=== PATIENT | female | born 1995 | race Caucasian/White ===

== ENCOUNTER 2022-12-12 13:08 | Emergency (ER) | payer OTHER ==
[2022-12-12 14:30] LABS: BASOPHILS # (AUTO) 0.1 10^3/uL (0.0-0.1); BASOPHILS % (AUTO) 0.5 %; EOSINOPHILS # (AUTO) 0.1 10^3/uL (0.0-0.7); EOSINOPHILS % (AUTO) 1.1 %; HCT - HEMATOCRIT 37.9 % (37.0-47.0); HGB - HEMOGLOBIN 12.7 g/dL (12.0-16.0); LYMPHOCYTES # (AUTO) 2.3 10^3/uL (1.5-3.5); MEAN CORPUSCULAR HEMOGLOBIN 30.6 pg (27.0-31.0); MEAN CORPUSCULAR HGB CONC 33.5 g/dL (32.0-36.0); MEAN CORPUSCULAR VOLUME 91.3 fL (81.0-99.0); MONOCYTES # (AUTO) 0.8 10^3/uL (0.0-1.0); MONOCYTES % (AUTO) 8.4 %; NEUTROPHILS # (AUTO) 6.1 10^3/uL (1.5-6.6); NEUTROPHILS % (AUTO) 65.5 %; PLT - PLATELET COUNT 255 10^3/uL (130-450); RED BLOOD COUNT 4.15 10^6/uL (4.20-5.40); RED CELL DISTRIBUTION WIDTH 12.3 % (12.0-15.0); WHITE BLOOD COUNT 9.4 x10^3/uL (4.8-10.8)
[2022-12-12 14:46] LABS: ALBUMIN 3.9 g/dL (3.2-5.5); ALBUMIN/GLOBULIN RATIO 1.4 (1.0-2.2); BILIRUBIN,TOTAL 0.6 mg/dL (0.2-1.0); CALCIUM 8.9 mg/dL (8.5-10.3); CREATININE 0.5 mg/dL (0.4-1.0); POTASSIUM 3.5 mmol/L (3.5-5.0); TOTAL PROTEIN 6.7 g/dL (6.7-8.2)
--- NOTE | 2022-12-12 15:12 | ED Physician Documentation ---
History of Present Illness - Stated complaint Stated Complaint: 9 WKS CRAMPING - Chief complaint Chief Complaint: General - Additonal information Additional information: 27-year-old female presents to the emergency department for evaluation of right lower pelvic cramping. She states that she thinks she is 9 weeks . Unsure of her last menstrual cycle as she is irregular but was told that she was at [facility] about 3 weeks ago. She denies vaginal bleeding or spotting. No fevers. Has not taken anything for pain G1, P0. Using Zofran for nausea and vomiting. Also taking prenatals. She is scheduled to follow-up with Dr. Hoover with OB services in [place] in mid December. Review of Systems Constitutional: denies: Fever, Chills GI: reports: Abdominal Pain : reports: Now EGA. denies: Dysuria, Frequency PD ED PE NORMAL - General General: Alert and oriented X 3, No acute distress - HEENT HEENT: PERRL - Neck Neck: Supple, no meningeal sign, No adenopathy - Cardiac Cardiac: RRR, No murmur - Respiratory Respiratory: No respiratory distress, Clear bilaterally - Abdomen Abdomen: Soft, Non tender (No tenderness elicited within the abdomen or pelvis with palpation) - Back Back: No CVA TTP, No spinal TTP - Derm Derm: Normal color, Warm and dry, No rash - Extremities Extremities: No deformity, No tenderness to palpate, Normal ROM s pain - Neuro Neuro: Alert and oriented X 3 Eye Opening: Spontaneous Motor: Obeys Commands Verbal: Oriented GCS Score: 15 Results - Vitals Vitals: Vital Signs - 24 hr 12/12/22 12/12/22 13:19 16:03 Temperature 36.4 C L Heart Rate 75 74 Respiratory 18 16 Rate Blood Pressure 123/84 H 123/80 O2 Saturation 100 100 Oxygen O2 Source Room air - Labs Labs: Laboratory Tests 12/12/22 12/12/22 12/12/22 14:22 14:22 14:22 WBC 9.4 RBC 4.15 L Hgb 12.7 Hct 37.9 MCV 91.3 MCH 30.6 MCHC 33.5 RDW 12.3 Plt Count 255 MPV 10.0 Neut # (Auto) 6.1 Lymph # (Auto) 2.3 [place] # (Auto) 0.8 Eos # (Auto) 0.1 Baso # (Auto) 0.1 Absolute Nucleated RBC 0.00 Nucleated RBC % 0.0 Sodium 133 L Potassium 3.5 Chloride 102 Carbon Dioxide 24 Anion Gap 7.0 BUN 14 Creatinine 0.5 Estimated GFR (MDRD) 147 Glucose 88 Calcium 8.9 Total Bilirubin 0.6 AST 19 ALT 19 Alkaline Phosphatase 41 L Total Protein 6.7 Albumin 3.9 Globulin 2.8 Albumin/Globulin Ratio 1.4 Lipase 30 HCG, Quant Urine Color Urine Clarity Urine pH Ur Specific [place] Urine Protein Urine Glucose (UA) Urine Ketones Urine Occult Blood Urine Nitrite Urine Bilirubin Urine Urobilinogen Ur Leukocyte Esterase Ur Microscopic Review Urine Culture Comments Blood Type O POSITIVE 12/12/22 12/12/22 14:22 15:13 WBC RBC Hgb Hct MCV MCH MCHC RDW Plt Count MPV Neut # (Auto) Lymph # (Auto) [place] # (Auto) Eos # (Auto) Baso # (Auto) Absolute Nucleated RBC Nucleated RBC % Sodium Potassium Chloride Carbon Dioxide Anion Gap BUN Creatinine Estimated GFR (MDRD) Glucose Calcium Total Bilirubin AST ALT Alkaline Phosphatase Total Protein Albumin Globulin Albumin/Globulin Ratio Lipase HCG, Quant 348703.00 Urine Color YELLOW Urine Clarity CLEAR Urine pH 7.0 Ur Specific [place] 1.020 Urine Protein NEGATIVE Urine Glucose (UA) NEGATIVE Urine Ketones NEGATIVE Urine Occult Blood NEGATIVE Urine Nitrite NEGATIVE Urine Bilirubin NEGATIVE Urine Urobilinogen 0.2 (NORMAL) Ur Leukocyte Esterase NEGATIVE Ur Microscopic Review NOT INDICATED Urine Culture Comments NOT INDICATED Blood Type - Rads (name of study) pelvic US/OB Relevant Findings:: Other (Per chief nuclear medicine technologist patient is 9 weeks 1 day with a live IUP. She does have an associated small subchorionic hemorrhage measuring 2 cm. Left corpus luteal cyst. Likely right hemorrhagic ovarian cyst) PD Medical Decision Making - ED course Complexity details: reviewed results, re-evaluated patient, considered differential, d/w patient, d/w family ED course: 19-year-old female presents emergency department for evaluation of pelvic cramping in first trimester . She denies vaginal bleeding or spotting. She has yet to establish with OB and is scheduled in early December. We did obtain a CBC and electrolytes as well as urinalysis today in the ER. Per my interpretation no acute worrisome findings. She had a very healthy hCG greater than 180,000. A pelvic ultrasound reveals a single live IUP measuring 9 weeks 1 day. There is associated subchorionic hemorrhage as well as findings of a left corpus luteal and right hemorrhagic ovarian cyst. I discussed these findings with the patient in particular that the subchorionic hemorrhage is a risk for threatened miscarriage in early . Patient became emotionally upset and then began to have a vasovagal event which after a few minutes resolved with reassurance and calming. She was otherwise hemodynamically stable during the event and ED visit I am encouraging the patient to follow closely with her OB and [place] Dr. Hoover. The usual emergent return precautions for miscarriage were discussed Departure - Departure Disposition: 01 Home, Self Care Clinical Impression: Threatened miscarriage in early Subchorionic hematoma in first trimester Qualifiers: Fetus number: single or unspecified fetus Qualified Code(s): O41.8X10 - Other specified disorders of amniotic fluid and membranes, first trimester, not applicable or unspecified; O46.8X1 - Other antepartum hemorrhage, first trimester Condition: Stable Record reviewed to determine appropriate education?: Yes Instructions: ED Miscarriage Poss Comments: Skye came to the emergency department today because you began having some pelvic cramping. You were not having any vaginal bleeding or discharge. Your CBC, electrolytes and urinalysis today show no worrisome findings or infection. We did do a pelvic ultrasound that shows you are 9 weeks 1 day . There was an associated small subchorionic hemorrhage. This is bleeding near the placenta and uterus. This can lead to early miscarriage in however many women that have this will go on to have normal pregnancies. It is important that you continue to discuss this ED visit with your OB Dr. Hoover. I encourage you to call his office tomorrow. Reasons to return to the emergency department would include heavy vaginal bleeding where as you soak a pad or tampon every hour for 4 more hours, severe chest pain, shortness of air or uncontrolled vomiting.
[2022-12-12 15:20] LABS: BILIRUBIN,URINE NEGATIVE (NEGATIVE); GLUCOSE, URINE (UA) NEGATIVE (NEGATIVE); KETONES,URINE (UA) NEGATIVE (NEGATIVE); LEUKOCYTE ESTERASE, URINE NEGATIVE (NEGATIVE); NITRITE,URINE NEGATIVE (NEGATIVE); OCCULT BLOOD,URINE NEGATIVE (NEGATIVE); PROTEIN,URINE NEGATIVE (NEGATIVE); UROBILINOGEN,URINE 0.2 (NORMAL) E.U./dL (NORMAL)
[2022-12-12 15:22] LABS: CLARITY,URINE CLEAR (CLEAR)
[2022-12-12 17:06] VITALS: BP 105/66
--- NOTE | 2022-12-12 17:29 | Ultrasound Report ---
PROCEDURE: OB First Trimester w/TV INDICATIONS: pelvic cramping 1st trimester OUTSIDE/PRIOR DATING DATA: LMP-based estimated date of delivery (ROB): 07/16/2023. TECHNIQUE: Real-time scanning was performed of the fetus and maternal pelvic organs, with image documentation. Endovaginal scanning was also performed to better visualize the fetus and maternal ovaries. COMPARISON: None available FINDINGS: Intrauterine with a crown-rump length of 2.4 cm. Mean sac diameter measures 3.8 cm. Along the margin of the gestational sac there is a small subchorionic hemorrhage. Calculated age by ultrasound is 9 weeks 1 day and a estimated delivery of 07/16/2023 Embryo: Normal appearance Heart rate: 167 Measurement variability in dating: +/- 4 weeks by LMP, +/- 7 days by mean sac diameter (use before 6 weeks gestation if crown-rump length not able to be measured), +/- 5 days by crown-rump length (6-12 weeks gestation). Maternal organs: Ovaries appear unremarkable.. IMPRESSION: Small subchorionic hemorrhage with a live intrauterine and concurrent dating. Reviewed by: Moe Ayala MD on 12/12/2022 4:28 PM [email or web address] Approved by: Moe Ayala MD on 12/12/2022 4:28 PM [email or web address] Station ID: [id number]
== END 2022-12-12 17:06 | disposition home or self-care (01) ==
LOC: ED 13:08
DX: O20.0 Threatened abortion (principal); N83.12 Corpus luteum cyst of left ovary; Z3A.09 9 weeks gestation of pregnancy
CPT/HCPCS: 36415; 80053; 81001; 81003; 83690; 84702; 85025; 86900; 86901; 87086; 99283; 99284

== ENCOUNTER 2024-01-03 10:15 | Outpatient (CLI) | payer OTHER ==
[2024-01-03 11:58] LABS: BASOPHILS % (AUTO) 0.5 %; EOSINOPHILS % (AUTO) 0.5 %; HCT - HEMATOCRIT 41.8 % (37.0-47.0); HGB - HEMOGLOBIN 13.5 g/dL (12.0-16.0); LYMPHOCYTES # (AUTO) 1.5 10^3/uL (1.5-3.5); LYMPHOCYTES % (AUTO) 23.2 %; MEAN CORPUSCULAR HEMOGLOBIN 29.3 pg (27.0-31.0); MEAN CORPUSCULAR HGB CONC 32.3 g/dL (32.0-36.0); MEAN CORPUSCULAR VOLUME 90.9 fL (81.0-99.0); MEAN PLATELET VOLUME 11.6 fL (7.9-10.8); MONOCYTES # (AUTO) 0.4 10^3/uL (0.0-1.0); MONOCYTES % (AUTO) 5.6 %; NEUTROPHILS # (AUTO) 4.6 10^3/uL (1.5-6.6); NEUTROPHILS % (AUTO) 69.9 %; PLT - PLATELET COUNT 248 10^3/uL (130-450); RED CELL DISTRIBUTION WIDTH 13.5 % (12.0-15.0); WHITE BLOOD COUNT 6.6 x10^3/uL (4.8-10.8)
[2024-01-03 12:07] LABS: ALBUMIN 4.5 g/dL (3.2-5.5); ALBUMIN/GLOBULIN RATIO 1.5 (1.0-2.2); ALKALINE PHOSPHATASE 67 IU/L (42-121); ALT ALANINE AMINOTRANSFERASE 17 IU/L (10-60); AMYLASE 52 U/L (28-100); AST ASPARTATE AMINOTRANSFERASE 21 IU/L (10-42); BILIRUBIN,TOTAL 1.6 mg/dL (0.2-1.0); BUN - BLOOD UREA NITROGEN 15 mg/dL (6-20); CALCIUM 9.9 mg/dL (8.5-10.3); CARBON DIOXIDE - CO2 25 mmol/L (21-32); CHLORIDE 106 mmol/L (101-111); CREATININE 0.7 mg/dL (0.6-1.3); GFR - MDRD 99 (>89); GLUCOSE 86 mg/dL (74-104); SODIUM 137 mmol/L (135-145); TOTAL PROTEIN 7.6 g/dL (6.4-8.9)
[2024-01-03 12:19] LABS: LIPASE < 10 U/L (11-82)
== END 2024-01-03 10:30 | disposition home or self-care (01) ==
LOC: LAB.N 10:15
PROVIDERS: ATTEND Physician Assistant Medical
DX: R11.2 Nausea with vomiting, unspecified (principal)
CPT/HCPCS: 36415; 80053; 82150; 83690; 85025